=== PATIENT | male | born 1960 | race Caucasian/White ===

== ENCOUNTER 2020-04-30 01:36 | Outpatient (CLI) | payer OTHER, SELFPAY ==
[2020-04-30 16:16] LABS: SARS-CoV-2 RNA PCR Negative
== END 2020-04-30 01:37 | disposition home or self-care (01) ==
LOC: ANHCOVIDDT 01:36
PROVIDERS: PCP Internal Medicine; Visit Provider Internal Medicine Gastroenterology
DX: Z01.812 Encounter for preprocedural laboratory examination (principal); Z11.59 Encounter for screening for other viral diseases
CPT/HCPCS: 87635; C9803; U0003

== ENCOUNTER 2020-05-02 00:59 | Day surgery (SDC) | payer OTHER, SELFPAY ==
[2020-04-23 15:35] VITALS: BMI 29.2
[2020-05-02 09:16] VITALS: BP 130/91; PULSE 63; RESP 18; TEMP 36.3; O2SAT 98
--- NOTE | 2020-05-02 09:36 | WPDANESEPPF ---
Anes - Initial Pre Proc Eval Procedure: Operation Date: 05/02/20 10:00 Proposed Procedures p Screening Colonoscopy - Everton Street MD Date/Time: 05/02/20 09:36 Surgeon: Everton Street MD Pre Op Diagnosis: neoplasm Screening Patient Data Age: 60 Gender: M Height: 5 ft 6 in Weight: 84.6 kg Last Vital Signs Temp 97.3 F L 05/02/20 09:16 Pulse 63 05/02/20 09:16 Resp 18 05/02/20 09:16 BP 130/91 H 05/02/20 09:16 Pulse Ox 98 05/02/20 09:16 Allergies Allergy/AdvReac Type Severity Reaction Status Date / Time No Known Allergies Allergy Verified 04/23/20 15:34 Home Medications Medication Instructions Recorded Confirmed Type ramipril 5 mg PO DAILY 04/23/20 04/23/20 History Patient hx anesthesia problems: none Family hx anesthesia problems: none [facility] Past Medical History Medical History (Updated 05/02/20 @ 09:36 by Óscar Dukes MD) Hyperlipidemia Hypertension Social History Social History Gender identity (if verbalized by the patient): Male Anes - Eval Final PreProcedure Day of Procedure 05/02/20 09:36 Patient weight: normal Heart: regular rate and rhythm Lungs: clear to auscultation Airway: Mallampati scale class II Neurological: alert and oriented Last oral intake: >/= 8 hours ASA classification: II Emergent: no Anesthetic plan: proceed Anesthesia type and monitoring: general GIVS and standard monitoring Informed Consent: The patient's anesthetic plan and its attendant risks and benefits were discussed with the patient/family/POA. Questions were solicited and answers provided to the satisfaction of the patient/family/POA.
[2020-05-02] MEDS: LACTATED RINGERS 1,000 ML 150 ML IV CONT (09:43)
--- NOTE | 2020-05-02 09:59 | PM.HPGS ---
History of Present Illness History of Present Illness Consent: Risks, benefits, and alternatives have been discussed and questions answered. Patient agrees to proceed with procedure. Chief complaint: neoplasm Screening Narrative: Darien Bradley is a 60 year old male For screening colonoscopy. He has history of polyps. His last colonoscopy was 7 years ago. His father from colon cancer [facility] Past Medical History Medical History Hyperlipidemia Hypertension Social History Social History Gender identity (if verbalized by the patient): Male Meds Home Medications and Allergies Home Medications Medication Instructions Recorded Confirmed Type ramipril 5 mg PO DAILY 04/23/20 04/23/20 History Allergies Allergy/AdvReac Type Severity Reaction Status Date / Time No Known Allergies Allergy Verified 04/23/20 15:34 Vital Signs Vital Signs - 24 hr 05/02/20 09:16 Temperature 36.3 C L Pulse Rate 63 Respiratory Rate 18 Blood Pressure 130/91 H Pulse Oximetry 98 Exam Resp: Auscultation: clear to auscultation bilaterally Cardio: Rate: regular rate Rhythm: regular rhythm GI: GI Palp: Yes Soft to palpation and No Tenderness to palpation present (GI) Assessment and Plan Assessment and plan (1) Colon cancer screening: Code(s): Z12.11 - Encounter for screening for malignant neoplasm of colon Status: Acute Assessment and Plan: Colonoscopy with possible biopsy or polypectomy or cautery or injection of substances.
[2020-05-02] MEDS: SIMETHICONE ORAL SUSPENSION 20 MG/0.3 ML 30 ML BOTTLE 0.6 ML IRRIGATION (10:07)
[2020-05-02 10:16] VITALS: BP 111/67; PULSE 65; RESP 16; O2SAT 96
[2020-05-02 10:26] VITALS: BP 112/69; PULSE 63; RESP 13; O2SAT 97
[2020-05-02 10:36] VITALS: BP 132/90; PULSE 81; RESP 16; O2SAT 100
== END 2020-05-02 11:19 | disposition home or self-care (01) ==
PROVIDERS: PCP Internal Medicine; Visit Provider Internal Medicine Gastroenterology
PROC: 0DJD8ZZ Inspection of Lower Intestinal Tract, Via Natural or Artificial Opening Endoscopic (ICD-10-PCS; CPT 45378; principal; 2020-05-02 10:00)
DX: Z12.11 Encounter for screening for malignant neoplasm of colon (principal); D12.0 Benign neoplasm of cecum; K57.30 Diverticulosis of large intestine without perforation or abscess without bleeding; K64.8 Other hemorrhoids; Z80.0 Family history of malignant neoplasm of digestive organs; I10 Essential (primary) hypertension; E78.5 Hyperlipidemia, unspecified
CPT/HCPCS: 45380; 88305; J2704; J7120

== ENCOUNTER 2021-01-23 13:59 | Outpatient (RCR) | payer OTHER, SELFPAY ==
--- NOTE | 2021-01-23 17:04 | PTOPEVAL ---
INITIAL PHYSICAL THERAPY EVALUATION and PLAN OF CARE Thank you for referring Darien Bradley to [facility].? Darien may benefit from an MRI to further determine source of L shoulder pain and dysfunction. If his insurance will not allow this to be done prior to receiving PT, he will be scheduled to be seen for physical therapy? 2x/week for 4 weeks. Please review, sign, date and return this plan of care KATIE. I agree with and certify that the following plan of care is medically necessary. Referring Physician Date Admitting Provider: Attending Provider: Tess Kendall, ANP Referring Provider: *PT Outpatient Evaluation Start: 01/23/21 14:11 Freq: Status: Active Protocol: Document 01/23/21 14:11 ALY (Rec: 01/23/21 15:43 ALY [id number]) Therapy Assessment Status Assessment Status Assessment Status Evaluation Outpatient Past Medical History Past Medical History Source of Past Medical History Recalled from Previous Visit, Confirmed with Patient/Family Cardiovascular History Hx Hypercholesterolemia Yes Hx Hypertension Yes Gastrointestinal History Hx Irritable Bowel Yes Musculoskeletal History Hx Back Pain Yes: occasional, has scoliosis Other History Hx Cancer Yes: squamous cell skin cancer head removed Evaluation Information Problem Diagnosis L shoulder pain Onset 5 wks ago Cause wrestling 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 Arthritis of L shoulder - will always have pain with push ups. At time of injury, felt tearing sensation - posterior humerus Pain present with L shoulder - decreased motion present. Worse pain - with IR with resistance Sleeping - was uncomfortable last night - will have popping and clicking - if it does pop - will have increase in pain Takes Meloxicam daily, ices 2- 3 times/day Function - slowly improving Diagnostic Tests X-Rays For This Problem Yes Prior Level of Function Activ
--- NOTE | 2021-03-01 13:21 | PCPTNOTE ---
PHYSICAL THERAPY DISCHARGE NOTE Admitting Provider: Attending Provider: Tess Kendall, ANP Patient:Darien Bradley Date of :1960 Darien has not returned for any further treatments since 01/23/2021 - which was his initial visit. I had made several follow up phone calls to Darien seeing how he was doing with his HEP and if he had been able to receive any further diagnostic testing. When last spoke to him - he was following up with Tess. I have not heard from him since, hopefully he is still performing his HEP. PT intervention was kept to a minimum due to limited number of PT visits allowed by his insurance in case possible surgery was needed in the future. The goals have been partially met. Thank you for referring Darien to [facility]. Please review, sign, date and return this discharge summary KATIE. I have been updated about Darien's current status and I agree with discharge from the above service at this time. Referring Physician Date
== END 2021-03-12 10:27 | disposition home or self-care (01) ==
LOC: ANHHIPT 13:59
PROVIDERS: PCP Internal Medicine; Visit Provider Physician Assistant Medical
DX: M25.512 Pain in left shoulder (principal)
CPT/HCPCS: 97110; 97162

== ENCOUNTER → 2021-10-15 11:05 | Outpatient (REF) | payer OTHER, SELFPAY | LOC: ANHLAB 11:05 | PROVIDERS: PCP Internal Medicine; Visit Provider Nurse Practitioner | DX: C44.519 Basal cell carcinoma of skin of other part of trunk (principal); L57.8 Other skin changes due to chronic exposure to nonionizing radiation; D48.5 Neoplasm of uncertain behavior of skin | CPT/HCPCS: 88305 ==

== ENCOUNTER → 2021-11-25 10:09 | Outpatient (REF) | payer OTHER, SELFPAY | LOC: ANHLAB 10:09 | PROVIDERS: PCP Internal Medicine; Visit Provider Nurse Practitioner | DX: C44.319 Basal cell carcinoma of skin of other parts of face (principal); C44.519 Basal cell carcinoma of skin of other part of trunk | CPT/HCPCS: 88305; 88331 ==

== ENCOUNTER 2023-10-01 07:00 | Outpatient (NON) | payer OTHER, SELFPAY | END 2023-10-01 07:01 | disposition home or self-care (01) | PROVIDERS: PCP Family Medicine; Visit Provider Nurse Practitioner | DX: C44.41 Basal cell carcinoma of skin of scalp and neck (principal) | CPT/HCPCS: 88305 ==

== ENCOUNTER 2025-09-04 07:00 | Day surgery (SDC) | payer MEDICARE, SELFPAY ==
[2025-06-05 13:40] VITALS: BMI 29.9
[2025-09-04 07:26] VITALS: BP 132/79; PULSE 69; RESP 17; TEMP 36.6; O2SAT 99
[2025-09-04] MEDS: LACTATED RINGERS 1,000 ML 150 ML IV CONT (07:36)
--- NOTE | 2025-09-04 08:35 | P.PNAN_ITS ---
Anes - Initial Pre Proc Eval Procedure: Operation Date: 09/04/25 08:30 Proposed Procedures p Screening Colonoscopy - Boogie Tierney DO Date/Time: 09/04/25 08:35 Surgeon: Boogie Tierney DO Pre Op Diagnosis: Neoplasm Screening Patient Data Age: 65 Gender: M Height: 1.68 m Weight: 85.75 kg Last Vital Signs Temp 98 F 09/04/25 07:26 Pulse 69 09/04/25 07:26 Resp 17 09/04/25 07:26 BP 132/79 09/04/25 07:26 Pulse Ox 99 09/04/25 07:26 O2 Del Method Room Air 09/04/25 07:26 Allergies Allergy/AdvReac Type Severity Reaction Status Date / Time rosuvastatin (From Crestor) AdvReac Mild Brain fog Verified 09/04/25 07:22 Home Medications ?Medication ?Instructions ?Recorded ?Confirmed ?Type lisinopril 20 mg tablet 20 mg PO DAILY #90 tabs 01/2609/04/25 Rx Lactobacillus rhamnosus GG 10 1 cap PO DAILY #90 caps 04/19/25 09/04/25 Rx billion cell capsule (Culturelle) Prevagen See Rx Instructions .Route 0 04/19/25 09/04/25 Rx .COMPLEX #90 caps Vitamin D2 25 mcg BYMOUTH DAILY #90 cap s 04/19/25 09/04/25 Rx atorvastatin 20 mg tablet 20 mg PO QHS #90 tabs 09/04/25 Rx fish oil 500 mg BYMOUTH DAILY #90 cap s 04/19/25 09/04/25 Rx Patient hx anesthesia problems: none Family hx anesthesia problems: none Results Review: All pre-operative results and documents have been reviewed as part of the pre- operative evaluation. [facility] Past Medical History Medical History (Updated 04/19/25 @ 11:40 by Tess Kendall PA-C) Annual physical exam Osteoarthritis Toenail fungus Elevated fasting glucose Encounter for screening for malignant neoplasm of prostate Rotator cuff arthropathy Hypertension Arthritis Elevated lipids Dizziness Hyperlipidemia Surgical History Surgical History H/O rotator cuff surgery H/O colonoscopy 05/02/20 History of tonsillectomy Arteriovenous fistula removed Family History Family History Father Cancer Mother Hypertension Other Family history of arthritis Family history of heart disease in male family member before age 55 Family history of malignant neoplasm Social History Social History (Updated 04/19/25 @ 08:07 by Howard Khan) Social History: 04/18/25 declined SDOH Smoking status: Never smoker Alcohol intake: current Alcohol use details: occasional Substance use: never Substance use type: does not use Lack of Transportation: No Lack of Food: Never True Current Housing: I Have Housing Concerned About Future Housing: No Difficulty Paying Gas/Electric Bills: No Difficulty Paying for Meds: No Currently Unemployed: No Education: Don't Know Difficulty w/ Childcare or Family Care: No Living arrangements: with family Occupation/Education: retired Gender identity (if verbalized by the patient): Male Spiritual care concerns: No Agree to blood products: Yes Anes - Eval Final PreProcedure Day of Procedure 09/04/25 08:35 Heart: regular rate and rhythm Lungs: clear to auscultation Airway: Mallampati scale class II Neurological: alert and oriented Last oral intake: >/= 8 hours ASA classification: II Anesthetic plan: proceed Anesthesia type and monitoring: general Results Review: All pre-operative results and documents have been reviewed as part of the pre- operative evaluation. Informed Consent: The patient's anesthetic plan and its attendant risks and benefits were discussed with the patient/family/POA. Questions were solicited and answers provided to the satisfaction of the patient/family/POA.
--- NOTE | 2025-09-04 08:35 | PM.IMHP2 ---
H&P: HPI History of Present Illness Date/Time: 09/04/25 08:35 Chief Complaint: fam hx colon cancer Narrative: 65 yo man presents for colonoscopy. Has fam hx colon cancer in his father. Last colonoscopy was 5 years ago. Review of Systems Review of Systems: All systems reviewed & are unremarkable except as noted in HPI and below Constitutional: Constitutional: Denies chills, Denies fever(s), Denies headache(s) and Denies weight loss Eyes: Eyes: Denies change in vision ENT: Denies dizziness, Denies headache(s), Denies neck mass and Denies throat swelling Cardiovascular: Cardiovascular: Denies chest pain, Denies lightheadedness and Denies dyspnea Respiratory: Respiratory: Denies cough, Denies dyspnea and Denies wheezing Gastrointestinal: Gastrointestinal: Denies abdominal pain, Denies change in bowel habits, Denies nausea and Denies vomiting Genitourinary: Genitourinary: Denies hematuria and Denies dysuria Musculoskeletal: Musculoskeletal: Reports as per HPI Integumentary/Breasts: Skin/Breast: Reports as per HPI Neurologic: Denies dizziness and Denies headache(s) Allergic/Immunologic: Allergic/Immunologic: Denies throat swelling and Denies wheezing [facility] Past Medical History Medical History (Updated 04/19/25 @ 11:40 by Tess Kendall PA-C) Annual physical exam Osteoarthritis Toenail fungus Elevated fasting glucose Encounter for screening for malignant neoplasm of prostate Rotator cuff arthropathy Hypertension Arthritis Elevated lipids Dizziness Hyperlipidemia Surgical History Surgical History H/O rotator cuff surgery H/O colonoscopy 05/02/20 History of tonsillectomy Arteriovenous fistula removed Family History Family History Father Cancer Mother Hypertension Other Family history of arthritis Family history of heart disease in male family member before age 55 Family history of malignant neoplasm Social History Social History (Updated 04/19/25 @ 08:07 by Howard Khan) Social History: 04/18/[address] [facility] Smoking status: Never smoker Alcohol intake: current Alcohol use details: occasional Substance use: never Substance use type: does not use Lack of Transportation: No Lack of Food: Never True Current Housing: I Have Housing Concerned About Future Housing: No Difficulty Paying Gas/Electric Bills: No Difficulty Paying for Meds: No Currently Unemployed: No Education: Don't Know Difficulty w/ Childcare or Family Care: No Living arrangements: with family Occupation/Education: retired Gender identity (if verbalized by the patient): Male Spiritual care concerns: No Agree to blood products: Yes Meds Home Medications and Allergies Home Medications ?Medication ?Instructions ?Recorded ?Confirmed ?Type lisinopril 20 mg tablet 20 mg PO DAILY #90 tabs 02/07/25 09/04/25 Rx Lactobacillus rhamnosus GG 10 1 cap PO DAILY #90 caps 04/19/25 09/04/25 Rx billion cell capsule (Culturelle) Prevagen See Rx Instructions .Route 04/19/25 09/04/25 Rx .COMPLEX #90 caps Vitamin D2 25 mcg BYMOUTH DAILY #90 caps 04/19/25 09/04/25 Rx atorvastatin 20 mg tablet 20 mg PO QHS #90 tabs 04/19/25 09/04/25 Rx fish oil 500 mg BYMOUTH DAILY #90 caps 04/19/25 09/04/25 Rx Allergies Allergy/AdvReac Type Severity Reaction Status Date / Time rosuvastatin (From Crestor) AdvReac Mild Brain fog Verified 09/04/25 07:22 Vital Signs Vital Signs - 24 hr 09/04/25 07:26 Temperature 98 F Pulse Rate 69 Respiratory Rate 17 Blood Pressure 132/79 Pulse Oximetry 99 Oxygen Delivery Room Air Exam Const: General: no acute distress and alert Orientation/consciousness: patient oriented x3 HENMT: Head: normocephalic and atraumatic Ears: hearing grossly normal bilaterally Face/Nose/Sinus: Normal nares present Mouth: Yes Normal oral and palatal mucosa present Eyes: Periorbital: periorbital findings normal Sclera: sclerae normal EOM: EOMs intact bilaterally Neck: Neck: normal visual inspection, no lymphadenopathy and trachea midline Chest: Chest palpation & inspection: normal inspection of the chest Resp: Effort & Inspection: normal respiratory effort Auscultation: clear to auscultation bilaterally Cardio: Jugular venous distension: no JVD Rate: regular rate Rhythm: regular rhythm Heart sounds: S1 normal heart sound present and S2 normal heart sound present Peripheral pulses: Peripheral pulses 2+ throughout GI: Inspection: normal to inspection GI Palp: Yes Soft to palpation, No Tenderness to palpation present (GI), No Guarding due to palpation present (GI) and No Rebound tenderness present Percussion: Yes normal to percussion Auscultation: normal bowel sounds : General: Yes no CVA tenderness Back/Spine/Pelvis: Back: no CVA tenderness Neuro: General: patient oriented x3, no focal motor deficits and CN's II-XI intact bilaterally Cognition (Neuro): normal cognition Speech: normal speech Motor exam (neuro): 5/5 motor strength present throughout Extrem: General: capillary refill normal and no clubbing, cyanosis or edema Assessment and Plan Assessment and plan (1) Family history of colon cancer: Code(s): Z80.0 - Family history of malignant neoplasm of digestive organs Status: Acute Assessment and Plan: I have recommended colonoscopy. I have discussed the procedure, risks, benefits, and alternatives. Questions were answered. Patient is agreeable to proceed.
--- NOTE | 2025-09-04 08:58 | WPDANESPN ---
Anes - Prog Note Post-Op Date/Time: 09/04/25 08:58 Vital Signs: Last Vital Signs Temp 98 F 09/04/25 07:26 Pulse 69 09/04/25 07:26 Resp 17 09/04/25 07:26 BP 132/79 09/04/25 07:26 Pulse Ox 99 09/04/25 07:26 O2 Del Method Room Air 09/04/25 07:26 Pain Score (VAS): no Patient Feedback: Patient satisfied with anesthetic care.
[2025-09-04 09:02] VITALS: BP 105/76; PULSE 64; RESP 14; O2SAT 99
[2025-09-04 09:12] VITALS: BP 126/75; PULSE 59; RESP 16; O2SAT 100
[2025-09-04 09:22] VITALS: BP 132/76; PULSE 63; RESP 16; O2SAT 99
== END 2025-09-04 09:34 | disposition home or self-care (01) ==
PROVIDERS: PCP Physician Assistant Medical; Visit Provider Surgery
PROC: 0DJD8ZZ Inspection of Lower Intestinal Tract, Via Natural or Artificial Opening Endoscopic (ICD-10-PCS; CPT 45378; principal; 2025-09-04 08:30)
DX: Z12.11 Encounter for screening for malignant neoplasm of colon (principal); D12.3 Benign neoplasm of transverse colon; D12.5 Benign neoplasm of sigmoid colon; K57.30 Diverticulosis of large intestine without perforation or abscess without bleeding; Z80.0 Family history of malignant neoplasm of digestive organs
CPT/HCPCS: 45385; 45380

== ENCOUNTER 2025-09-04 09:13 | Outpatient (NON) | payer MEDICARE, SELFPAY ==
--- NOTE | 2025-09-04 08:00 | S_PTH ---
PATIENT: Darien Bradley LOC: ANAB #:[id number] AGE/SX: 65/M ROOM: RE09/04/[address]: Boogie Tierney DO : 1960 BED: DIS: 09/04/2025 SPEC #: [id number] RECD: 09/05/25 10:11 STATUS: VIRIDIANA REQ #: [id number] ALLYSSA: 09/04/25 08:[address]: Boogie Tierney DEPT: [facility] Surgical RECD BY: Poonam Johnson MLT, ([facility]) ENTERED: 09/05/25 10:13 SP TYPE: Surgical OTHR DR: Tess Kendall PA-C Tissues: A - Polyp B - Polyp Procedures: Hematoxylin and Eosin Stain Gross and Microscopic Level 4
== END 2025-09-04 09:14 | disposition home or self-care (01) ==
LOC: ANHLAB 09-05 09:14
PROVIDERS: PCP Physician Assistant Medical; Visit Provider Surgery
DX: D12.3 Benign neoplasm of transverse colon (principal); D12.5 Benign neoplasm of sigmoid colon; Z80.0 Family history of malignant neoplasm of digestive organs
CPT/HCPCS: 88305